=== PATIENT | male | born 1980 | race Caucasian/White ===

== ENCOUNTER 2019-06-13 10:36 | Inpatient (IN) | payer MEDICAID ==
[~2019-06-13] VITALS: Ht 180.3 cm; Wt 77.7 kg
[2019-06-13] MEDS ORDERED: DOCUSATE 100 MG CAPSULE PO PRN (11:00)
[2019-06-13] MEDS ORDERED: ONDANSETRON ODT 4 MG PO PRN (11:00)
[2019-06-13] MEDS ORDERED: PLEASE ENTER HEIGHT AND WEIGHT MC SCH (11:00)
[2019-06-13] MEDS ORDERED: BISACODYL 10 MG SUPP PR PRN (11:00)
[2019-06-13] MEDS ORDERED: POLYETHYLENE GLYCOL 17 GM PACKET PO PRN (11:00)
[2019-06-13] MEDS ORDERED: MAALOX/HYOSCYAMINE/LIDOCAINE 45 ML BTL PO PRN (11:30)
[2019-06-13 11:31] VITALS: BP 113/76
[2019-06-13] MEDS: PANTOPRAZOLE 20MG TABLET PO SCH (11:48)
[2019-06-13] MEDS ORDERED: ONDA4TAB7 PO (13:31)
[2019-06-13] MEDS ORDERED: HALO100A3 IM (13:31)
[2019-06-13] MEDS ORDERED: LISI-167 PO (13:31)
[2019-06-13] MEDS ORDERED: ALBU2.5V11 NEB (13:31)
[2019-06-13] MEDS ORDERED: TIOT18CA INH (13:31)
[2019-06-13] MEDS: NICOTINE 14MG/24 HR PATCH.TD24 TD SCH (15:12)
[2019-06-13] MEDS: BENZTROPINE 1 MG TABLET PO SCH ×2 (17:17→20:54)
[2019-06-13] MEDS: RISPERIDONE 1 MG TABLET PO SCH ×2 (17:17→20:54)
[2019-06-13] MEDS ORDERED: FLU VACC QS2019-20 36MOS UP/PF 0.5 ML IM-VACC ONE (18:00)
[2019-06-13 19:42] VITALS: BP 100/68
[2019-06-13] MEDS: ATORVASTATIN 20 MG TABLET PO SCH (20:54)
[2019-06-13] MEDS: LORazepam 0.5MG TABLET PO PRN (20:55)
[2019-06-13] MEDS: ALBUTEROL SULFATE 2.5 MG/3 ML NPPB SCH (21:00)
[2019-06-14] MEDS: PANTOPRAZOLE 20MG TABLET PO SCH (05:48)
[2019-06-14 06:06] LABS: BASOPHILS # (AUTO) 0.09 x10^3/uL (0-0.1); BASOPHILS % (AUTO) 1 % (0-1); EOSINOPHILS # (AUTO) 0.64 x10^3/uL (0-0.4); EOSINOPHILS % (AUTO) 10 % (1-7); LYMPHOCYTES % (AUTO) 38 % (22-44); MD NO; MEAN CORPUSCULAR HEMOGLOBIN 29.2 pg (27.5-34.5); MEAN CORPUSCULAR HGB CONC 33.1 g/dL (33.2-36.2); MEAN CORPUSCULAR VOLUME 88.3 fL (81-97); MEAN PLATELET VOLUME 9.2 fL (7.4-10.4); MONOCYTES # (AUTO) 0.62 x10^3/uL (0.2-0.8); MONOCYTES % (AUTO) 9 % (2-9); NEUTROPHILS # (AUTO) 2.78 x10^3/uL (1.8-6.8); NEUTROPHILS % (AUTO) 42 % (42-75); PLATELET COUNT 248 x10^3/uL (130-400); RED BLOOD COUNT 5.25 x10^6/uL (4.38-5.82); RED CELL DISTRIBUTION WIDTH 14.2 % (9.4-14.8)
[2019-06-14 06:25] LABS: FREE T4 (FREE THYROXINE) 0.98 ng/dL (0.76-1.46)
[2019-06-14 07:35] VITALS: BP 111/70
[2019-06-14 07:35] LABS: CHOL/HDL RATIO 3.1; LDL/HDL RATIO 1.5 (0.5-3.0)
[2019-06-14] MEDS: BENZTROPINE 1 MG TABLET PO SCH ×2 (09:16→20:01)
[2019-06-14] MEDS: LISINOPRIL 10 MG TABLET PO SCH (09:17)
[2019-06-14] MEDS: RISPERIDONE 1 MG TABLET PO SCH ×2 (09:17→20:01)
[2019-06-14] MEDS: ALBUTEROL SULFATE 2.5 MG/3 ML NPPB SCH ×2 (09:55→21:00)
[2019-06-14] MEDS: NICOTINE 14MG/24 HR PATCH.TD24 TD SCH (16:37)
[2019-06-14 19:06] VITALS: BP 104/71
[2019-06-14] MEDS: ATORVASTATIN 20 MG TABLET PO SCH (20:01)
[2019-06-14] MEDS: LORazepam 0.5MG TABLET PO PRN ×2 (20:01→23:19)
[2019-06-15 00:30] LABS: MICROSCOPIC NOT IND
[2019-06-15 00:38] LABS: CULTURE INDICATED? NO
[2019-06-15] MEDS: PANTOPRAZOLE 20MG TABLET PO SCH (06:19)
[2019-06-15 07:43] VITALS: BP 126/84
[2019-06-15] MEDS: ALBUTEROL SULFATE 2.5 MG/3 ML NPPB SCH ×2 (09:00→19:43)
[2019-06-15] MEDS: LISINOPRIL 10 MG TABLET PO SCH (10:08)
[2019-06-15] MEDS: BENZTROPINE 1 MG TABLET PO SCH ×2 (10:08→20:16)
[2019-06-15] MEDS: RISPERIDONE 1 MG TABLET PO SCH ×2 (10:08→20:17)
[2019-06-15] MEDS: NICOTINE 14MG/24 HR PATCH.TD24 TD SCH (15:40)
[2019-06-15 19:12] LABS: OCCULT BLOOD NEGATIVE (NEGATIVE)
[2019-06-15 19:15] VITALS: BP 110/75
[2019-06-15] MEDS: ATORVASTATIN 20 MG TABLET PO SCH (20:16)
[2019-06-15] MEDS: LORazepam 0.5MG TABLET PO PRN (20:17)
[2019-06-15] MEDS: ACETAMINOPHEN 325 MG TABLET PO PRN (20:17)
[2019-06-16] MEDS: PANTOPRAZOLE 20MG TABLET PO SCH (05:09)
[2019-06-16 07:39] VITALS: BP 100/64
[2019-06-16] MEDS: RISPERIDONE 1 MG TABLET PO SCH ×2 (08:34→20:41)
[2019-06-16] MEDS: LORazepam 0.5MG TABLET PO PRN ×2 (08:34→20:41)
[2019-06-16] MEDS: BENZTROPINE 1 MG TABLET PO SCH ×2 (08:34→20:41)
[2019-06-16] MEDS: LISINOPRIL 10 MG TABLET PO SCH (08:35)
[2019-06-16] MEDS: ACETAMINOPHEN 325 MG TABLET PO PRN ×2 (08:35→20:42)
[2019-06-16] MEDS: ALBUTEROL SULFATE 2.5 MG/3 ML NPPB SCH ×2 (09:00→19:30)
[2019-06-16] MEDS: NICOTINE 14MG/24 HR PATCH.TD24 TD SCH (15:40)
[2019-06-16] MEDS ORDERED: RISP1TAB45 PO (15:52)
[2019-06-16] MEDS ORDERED: LISI-167 PO (15:52)
[2019-06-16] MEDS ORDERED: ATOR20TA37 PO (15:52)
[2019-06-16] MEDS ORDERED: PANT20TA3 PO (15:52)
[2019-06-16] MEDS ORDERED: BENZ1TAB61 PO (15:52)
[2019-06-16] MEDS ORDERED: NICO-486 TD (15:52)
[2019-06-16 19:00] VITALS: BP 158/90
[2019-06-16] MEDS: ATORVASTATIN 20 MG TABLET PO SCH (20:41)
[2019-06-17] MEDS: LORazepam 0.5MG TABLET PO PRN (01:33)
[2019-06-17] MEDS: PANTOPRAZOLE 20MG TABLET PO SCH (05:50)
[2019-06-17 07:33] VITALS: BP 142/95
[2019-06-17] MEDS: BENZTROPINE 1 MG TABLET PO SCH (08:48)
[2019-06-17] MEDS: LISINOPRIL 10 MG TABLET PO SCH (08:48)
[2019-06-17] MEDS: RISPERIDONE 1 MG TABLET PO SCH (08:48)
[2019-06-17] MEDS: ALBUTEROL SULFATE 2.5 MG/3 ML NPPB SCH (09:00)
== END 2019-06-17 11:08 | disposition home or self-care (01) | DRG 750 ==
LOC: 3E 10:51
PROVIDERS: ADMIT Psychiatry & Neurology Psychosomatic Medicine; ATTEND Psychiatry & Neurology Psychosomatic Medicine
DX: F25.1 Schizoaffective disorder, depressive type (principal); R45.851 Suicidal ideations; F17.210 Nicotine dependence, cigarettes, uncomplicated; E78.5 Hyperlipidemia, unspecified; B19.20 Unspecified viral hepatitis C without hepatic coma; G43.909 Migraine, unspecified, not intractable, without status migrainosus; I10 Essential (primary) hypertension; J45.909 Unspecified asthma, uncomplicated; K21.9 Gastro-esophageal reflux disease without esophagitis; Z79.899 Other long term (current) drug therapy; Z80.9 Family history of malignant neoplasm, unspecified; Z23 Encounter for immunization
CPT/HCPCS: 36415; 71045; 80061; 81003; 82272; 84439; 84443; 85025; 90686; 93005; 94640; J7613; Q0162

== ENCOUNTER 2019-07-09 10:19 | Emergency (ER) | payer MEDICAID ==
[~2019-07-09] VITALS: Ht 180.3 cm; Wt 78.4 kg
[~2019-07-09 10:19] MED LIST: ALBU2.5V11 NEB; ATOR20TA37 PO; BENZ1TAB61 PO; HALO100A3 IM; LISI-167 PO; NICO-486 TD; ONDA4TAB7 PO; PANT20TA3 PO; RISP1TAB45 PO; TIOT18CA INH
[2019-07-09] MEDS ORDERED: FAMOTIDINE 20 MG TABLET PO ONE (10:30)
[2019-07-09] MEDS ORDERED: MAALOX/HYOSCYAMINE/LIDOCAINE 45 ML BTL PO ONE (10:30)
[2019-07-09 10:59] LABS: MICROSCOPIC NOT IND
[2019-07-09] MEDS ORDERED: PLEASE ENTER ALLERGIES MC SCH (11:00)
[2019-07-09] MEDS ORDERED: PLEASE ENTER HEIGHT AND WEIGHT MC SCH (11:00)
[2019-07-09 11:01] LABS: CULTURE INDICATED? NO
[2019-07-09] MEDS ORDERED: MAALOX/HYOSCYAMINE/LIDOCAINE 45 ML BTL ONE (11:13)
[2019-07-09] MEDS ORDERED: FAMOTIDINE 20 MG TABLET ONE (11:13)
[2019-07-09 11:16] LABS: BASOPHILS # (AUTO) 0.05 x10^3/uL (0-0.1); BASOPHILS % (AUTO) 1 % (0-1); EOSINOPHILS # (AUTO) 0.64 x10^3/uL (0-0.4); EOSINOPHILS % (AUTO) 9 % (1-7); LYMPHOCYTES # (AUTO) 1.65 x10^3/uL (1-3.4); LYMPHOCYTES % (AUTO) 22 % (22-44); MD NO; MEAN CORPUSCULAR VOLUME 87.8 fL (81-97); MEAN PLATELET VOLUME 8.3 fL (7.4-10.4); MONOCYTES # (AUTO) 0.53 x10^3/uL (0.2-0.8); MONOCYTES % (AUTO) 7 % (2-9); NEUTROPHILS # (AUTO) 4.52 x10^3/uL (1.8-6.8); NEUTROPHILS % (AUTO) 61 % (42-75); PLATELET COUNT 297 x10^3/uL (130-400); RED BLOOD COUNT 5.19 x10^6/uL (4.38-5.82); RED CELL DISTRIBUTION WIDTH 14.9 % (9.4-14.8)
[2019-07-09 11:26] LABS: ALANINE AMINOTRANSFERASE 17 U/L (12-78); ALBUMIN 3.4 g/dL (3.4-5.0); ANION GAP 4 mmol/L (5-15); CHLORIDE 104 mmol/L (98-107); CREATININE 0.82 mg/dL (0.7-1.3)
[2019-07-09 11:29] LABS: ALKALINE PHOSPHATASE 101 U/L (45-117); BILIRUBIN,TOTAL 0.3 mg/dL (0.2-1.0); TOTAL PROTEIN 7.4 g/dL (6.4-8.2)
--- NOTE | 2019-07-09 11:36 | NUR ---
pt laying in bed, respirations even and unlabored, no signs of distress. medicated to mar, states relief from stomach pain. pt is a poor historian and making statements about spirits talking to him.
[2019-07-09 12:10] VITALS: BP 125/64
== END 2019-07-09 12:12 | disposition home or self-care (01) ==
LOC: ED 10:58
DX: R11.2 Nausea with vomiting, unspecified (principal); R42 Dizziness and giddiness; R05 Cough; K59.00 Constipation, unspecified; R10.9 Unspecified abdominal pain
CPT/HCPCS: 36415; 74021; 80053; 81003; 83690; 85025; 99284

== ENCOUNTER 2019-09-14 23:17 | Emergency (ER) | payer MEDICAID ==
[~2019-09-14] VITALS: Ht 180.3 cm; Wt 77.3 kg
[2019-09-14 23:19] VITALS: BP 105/71
--- NOTE | 2019-09-15 00:29 | NUR ---
pt nil x1
--- NOTE | 2019-09-15 00:53 | NUR ---
pt nilx2
--- NOTE | 2019-09-15 01:02 | NUR ---
pt nilx3
== END 2019-09-15 04:41 | disposition left against medical advice (07) ==
LOC: ED 09-15 04:38
DX: M54.5 Low back pain (principal); Z53.21 Procedure and treatment not carried out due to patient leaving prior to being seen by health care provider

== ENCOUNTER 2019-09-24 01:56 | Emergency (ER) | payer MEDICAID ==
[~2019-09-24] VITALS: Ht 177.8 cm; Wt 70.0 kg
[2019-09-24 01:58] VITALS: BP 126/80
--- NOTE | 2019-09-24 02:10 | NUR ---
THIS PT WALKED IN WITH [facility] AFTER THE [employer] CALLED BECAUSE THE PT WAS AT THE BUS STATION "NOT ACTING RIGHT." CURRENTLY THE PT STATES HE KNOWS HE'S IN THE HOSPITAL, BUT IS UNSURE WHY HE'S HERE. CHEIF COMPLAINT OF FEELING LIKE HE HAS CONTACTS IN HIS EYES. NO CONTACTS NOTED. DENIES SI/HI. HX OF SCHITZOPHRENIA, STATES HE'S NOT SURE IF HE'S HAVING AUDITORY HALLUCINATIONS. STATES HE SAW A DRAGON ON THE AMBULANCE RIDE HERE. NO SIGNS OF DISTRESS.
--- NOTE | 2019-09-24 02:57 | NUR ---
PT. ATTEMPTED TO PROVIDE URINE SAMPLE BUT WAS UNSUCCESSFUL. PT. BACK TO [facility]; RESTING WITH BLANKET OVER HEAD. RESPIRATIONS VISIBLE. DENIES NEEDS.
[2019-09-24 03:03] LABS: ALANINE AMINOTRANSFERASE 16 U/L (12-78); ALBUMIN 3.3 g/dL (3.4-5.0); ANION GAP 4 mmol/L (5-15); CALCIUM 8.3 mg/dL (8.5-10.1); CHLORIDE 106 mmol/L (98-107); CREATININE 0.78 mg/dL (0.7-1.3)
[2019-09-24 03:06] LABS: ALKALINE PHOSPHATASE 97 U/L (45-117); BILIRUBIN,TOTAL 0.5 mg/dL (0.2-1.0); TOTAL PROTEIN 6.8 g/dL (6.4-8.2)
[2019-09-24 03:15] LABS: BASOPHILS # (AUTO) 0.04 x10^3/uL (0-0.1); BASOPHILS % (AUTO) 1 % (0-1); EOSINOPHILS # (AUTO) 0.26 x10^3/uL (0-0.4); EOSINOPHILS % (AUTO) 5 % (1-7); LYMPHOCYTES # (AUTO) 1.41 x10^3/uL (1-3.4); LYMPHOCYTES % (AUTO) 28 % (22-44); MD SCAN; MEAN CORPUSCULAR HGB CONC 32.5 g/dL (33.2-36.2); MEAN CORPUSCULAR VOLUME 89.3 fL (81-97); MEAN PLATELET VOLUME 9.3 fL (7.4-10.4); MONOCYTES # (AUTO) 0.51 x10^3/uL (0.2-0.8); MONOCYTES % (AUTO) 10 % (2-9); NEUTROPHILS # (AUTO) 2.78 x10^3/uL (1.8-6.8); NEUTROPHILS % (AUTO) 56 % (42-75); PLATELET COUNT 212 x10^3/uL (130-400); RED BLOOD COUNT 4.75 x10^6/uL (4.38-5.82); RED CELL DISTRIBUTION WIDTH 14.9 % (9.4-14.8)
--- NOTE | 2019-09-24 03:25 | NUR ---
SUMMARY NOTE: THIS PT HAS PREVIOUS PSYCH ADMISSIONS. PT STATES HE'S NOT SURE WHEN HE LAST TOOK HIS SCHITZO-EFFCTIVE MEDICATION, PT UNSURE OF WHAT MEDICATION HE'S BEEN PRESCRIBED. PT DENIES DRUG USE, AND IS UNSURE OF WHEN HE LAST DRANK ALCOHOL. PT IS HAS REMAINED CALM AND COOPERATIVE. NO SITTER NECESSARY AT THIS TIME, BELONGINGS REMAIN IN ROOM. ROOM IS SECURE WITH GARAGE DOORS DOWN.
== END 2019-09-24 04:03 | disposition home or self-care (01) ==
LOC: ED 03:54
DX: F25.9 Schizoaffective disorder, unspecified (principal); Z91.14 Patient's other noncompliance with medication regimen
CPT/HCPCS: 36415; 80053; 80307; 85025; 99283; 99284

== ENCOUNTER 2019-11-03 23:36 | Emergency (ER) | payer MEDICAID ==
[~2019-11-03] VITALS: Ht 180.3 cm; Wt 79.5 kg
[2019-11-03 23:40] VITALS: BP 144/89
--- NOTE | 2019-11-03 23:46 | NUR ---
PT AMBULATORY TO ROOM, STEADY GAIT.
--- NOTE | 2019-11-03 23:57 | NUR ---
ERP TO BEDSIDE.
== END 2019-11-04 00:37 | disposition home or self-care (01) ==
LOC: ED 23:45
DX: F98.9 Unspecified behavioral and emotional disorders with onset usually occurring in childhood and adolescence (principal); Z72.9 Problem related to lifestyle, unspecified; F20.9 Schizophrenia, unspecified
CPT/HCPCS: 99283

== ENCOUNTER 2019-11-04 09:21 | Emergency (ER) | payer MEDICAID ==
[~2019-11-04] VITALS: Ht 180.3 cm; Wt 79.9 kg
[2019-11-04 09:25] VITALS: BP 133/86
[2019-11-04] MEDS ORDERED: ONDANSETRON 2MG/ML, 2ML ONE (09:47)
--- NOTE | 2019-11-04 09:50 | NUR ---
ekg at the bedside
[2019-11-04 09:54] LABS: BASOPHILS # (AUTO) 0.05 x10^3/uL (0-0.1); BASOPHILS % (AUTO) 1 % (0-1); EOSINOPHILS # (AUTO) 0.42 x10^3/uL (0-0.4); EOSINOPHILS % (AUTO) 5 % (1-7); LYMPHOCYTES # (AUTO) 1.87 x10^3/uL (1-3.4); LYMPHOCYTES % (AUTO) 20 % (22-44); MD NO; MEAN CORPUSCULAR HEMOGLOBIN 28.6 pg (27.5-34.5); MEAN CORPUSCULAR HGB CONC 32.3 g/dL (33.2-36.2); MEAN CORPUSCULAR VOLUME 88.7 fL (81-97); MEAN PLATELET VOLUME 8.2 fL (7.4-10.4); MONOCYTES # (AUTO) 0.87 x10^3/uL (0.2-0.8); MONOCYTES % (AUTO) 10 % (2-9); NEUTROPHILS # (AUTO) 6.01 x10^3/uL (1.8-6.8); NEUTROPHILS % (AUTO) 65 % (42-75); PLATELET COUNT 273 x10^3/uL (130-400); RED BLOOD COUNT 4.91 x10^6/uL (4.38-5.82); RED CELL DISTRIBUTION WIDTH 15.2 % (9.4-14.8)
[2019-11-04] MEDS ORDERED: SODIUM CHLORIDE FLUSH 10ML SYR IVF ONE (10:00)
[2019-11-04] MEDS ORDERED: ONDANSETRON 2MG/ML, 2ML IVPush ONE (10:00)
[2019-11-04] MEDS ORDERED: PLEASE ENTER ALLERGIES MC SCH (10:00)
[2019-11-04] MEDS ORDERED: SODIUM CHLORIDE 0.9% 1,000ML IVBOLUS ONE (10:00)
[2019-11-04 10:07] LABS: ALANINE AMINOTRANSFERASE 22 U/L (12-78); ALBUMIN 3.9 g/dL (3.4-5.0); ANION GAP 6 mmol/L (5-15); CALCIUM 8.9 mg/dL (8.5-10.1); CHLORIDE 107 mmol/L (98-107); CREATININE 0.74 mg/dL (0.7-1.3)
[2019-11-04 10:09] LABS: ALKALINE PHOSPHATASE 117 U/L (45-117); BILIRUBIN,TOTAL 0.6 mg/dL (0.2-1.0); TOTAL PROTEIN 7.5 g/dL (6.4-8.2)
== END 2019-11-04 11:45 | disposition home or self-care (01) ==
LOC: ED 10:50
DX: R11.2 Nausea with vomiting, unspecified (principal); R07.89 Other chest pain; R10.9 Unspecified abdominal pain
CPT/HCPCS: 36415; 71045; 80053; 85025; 93005; 96361; 96374; 99285; J2405; J7030

== ENCOUNTER 2019-11-05 18:59 | Emergency (ER) | payer MEDICAID ==
[~2019-11-05] VITALS: Ht 180.3 cm; Wt 80.8 kg
--- NOTE | 2019-11-05 21:00 | NUR ---
Pt to room at this time from lobby
--- NOTE | 2019-11-05 21:02 | NUR ---
Pt reports his chest hurts and his feet hurt.
--- NOTE | 2019-11-05 21:25 | NUR ---
Pt reports all of his body hurts and does not feel well. Pt reports he has been laying in the sun. Pt reports he has been off of meth for one month so he does not know why he doesnt feel well. Pt reports that his feet and lower right chest hurt as well. Pt denies trauma. Pts EKG normal and pt placed on montiors and call light in reach. Awaiting further orders. vss
--- NOTE | 2019-11-05 21:28 | NUR ---
Pt ekg completed.
[2019-11-05] MEDS ORDERED: IBUPROFEN 200 MG TABLET PO ONE (21:30)
[2019-11-05] MEDS ORDERED: IBUPROFEN 600 MG TABLET ONE (21:39)
--- NOTE | 2019-11-05 21:41 | NUR ---
Pt medicated per emar, chart up for recheck.
[2019-11-05 21:48] VITALS: BP 118/75
--- NOTE | 2019-11-05 23:04 | NUR ---
Patient/Caregiver given discharge instructions and they have confirmed that they understand the instructions. Patient ambulatory with steady gait.
== END 2019-11-05 23:05 | disposition home or self-care (01) ==
LOC: ED 23:00
DX: S20.219A Contusion of unspecified front wall of thorax, initial encounter (principal); M94.0 Chondrocostal junction syndrome [Tietze]; I10 Essential (primary) hypertension; F20.9 Schizophrenia, unspecified; X58.XXXA Exposure to other specified factors, initial encounter; Y92.89 Other specified places as the place of occurrence of the external cause; Y93.89 Activity, other specified; Y99.8 Other external cause status
CPT/HCPCS: 93005; 99283

== ENCOUNTER 2020-01-06 14:19 | Inpatient (IN) | payer MEDICAID ==
[~2020-01-06] VITALS: Ht 165.1 cm; Wt 94.2 kg
[~2020-01-06 14:19] MED LIST changes: -PANT20TA3 PO; +PANT20TA4 PO
[2020-01-06] MEDS ORDERED: DOCUSATE 100 MG CAPSULE PO PRN (15:00)
[2020-01-06] MEDS ORDERED: POLYETHYLENE GLYCOL 17 GM PACKET PO PRN (15:00)
[2020-01-06] MEDS ORDERED: BISACODYL 10 MG SUPP PR PRN (15:00)
[2020-01-06 16:09] VITALS: BP 172/98
[2020-01-06 20:17] VITALS: BP 106/73
[2020-01-07] MEDS: ACETAMINOPHEN 325 MG TABLET PO PRN ×5 (02:30→23:00)
[2020-01-07] MEDS: ONDANSETRON ODT 4 MG PO PRN ×3 (04:27→23:28)
[2020-01-07 06:10] LABS: CHOL/HDL RATIO 2.8; FREE T4 (FREE THYROXINE) 0.91 ng/dL (0.76-1.46); LDL/HDL RATIO 1.4 (0.5-3.0)
[2020-01-07 07:31] VITALS: BP 145/86
[2020-01-07] MEDS ORDERED: AMLODIPINE 5 MG TABLET PO SCH (09:00)
[2020-01-07] MEDS: RISPERIDONE 1 MG TABLET PO SCH ×2 (09:31→20:13)
[2020-01-07 20:08] VITALS: BP 126/76
[2020-01-07 23:06] LABS: MICROSCOPIC NOT IND
[2020-01-08] MEDS: ONDANSETRON ODT 4 MG PO PRN (07:26)
[2020-01-08] MEDS: RISPERIDONE 1 MG TABLET PO SCH ×2 (07:26→20:30)
[2020-01-08 07:29] VITALS: BP 150/98
[2020-01-08] MEDS: ACETAMINOPHEN 325 MG TABLET PO PRN ×2 (09:17→14:33)
[2020-01-08] MEDS: PANTOPRAZOLE 40MG TABLET PO SCH (13:38)
[2020-01-08] MEDS ORDERED: NICOTINE 14MG/24 HR PATCH.TD24 TD SCH (15:30)
[2020-01-08] MEDS ORDERED: LORazepam 1MG TABLET PO ONE (16:00)
[2020-01-08 19:12] VITALS: BP 145/97
[2020-01-09] MEDS ORDERED: FLU VACC QS2020-21(6MOS UP)/PF 60MCG/0.5 ML SYR IM ONE (05:00)
[2020-01-09 07:17] VITALS: BP 113/81
[2020-01-09] MEDS: PANTOPRAZOLE 40MG TABLET PO SCH (08:24)
[2020-01-09] MEDS: RISPERIDONE 1 MG TABLET PO SCH (08:27)
[2020-01-09] MEDS ORDERED: RISP1TAB45 PO (11:53)
[2020-01-09] MEDS ORDERED: NICO-486 TD (11:53)
[2020-01-09] MEDS ORDERED: PANT40TA6 PO (11:53)
== END 2020-01-09 12:29 | disposition home or self-care (01) | DRG 750 ==
LOC: 3E 15:46
PROVIDERS: ADMIT Psychiatry & Neurology Psychosomatic Medicine; ATTEND Psychiatry & Neurology Psychosomatic Medicine
DX: F25.0 Schizoaffective disorder, bipolar type (principal); F17.200 Nicotine dependence, unspecified, uncomplicated; G43.909 Migraine, unspecified, not intractable, without status migrainosus; J45.909 Unspecified asthma, uncomplicated; K21.9 Gastro-esophageal reflux disease without esophagitis; F12.90 Cannabis use, unspecified, uncomplicated; B19.20 Unspecified viral hepatitis C without hepatic coma; Z23 Encounter for immunization
CPT/HCPCS: 36415; 80061; 81003; 84439; 84443; 90686; 93005; Q0162

== ENCOUNTER 2020-06-17 01:07 | Emergency (ER) | payer MEDICAID ==
[~2020-06-17] VITALS: Ht 180.3 cm; Wt 101.2 kg
[~2020-06-17 01:07] MED LIST changes: +PANT40TA6 PO
[2020-06-17 01:08] VITALS: BP 132/89
--- NOTE | 2020-06-17 01:31 | NUR ---
CC OF [place], [place], [place], STATES "my head feels like something fell thru it" AND HAS FELT LIKE THIS FOR 3 YEARS. PT ALSO STATES "I HAVE BEEN SLEEPING FOR A MONTH AND HAVE NO PLACE TO LIVE, I HAVENT BEEN DOING DRUGS, I THINK I HAVE A CONCUSSION." UNSURE IF ANY TRAUMA.
[2020-06-17 01:58] LABS: BASOPHILS % (AUTO) 1 % (0-1); EOSINOPHILS % (AUTO) 5 % (1-7); LYMPHOCYTES % (AUTO) 24 % (22-44); MEAN CORPUSCULAR HEMOGLOBIN 29.7 pg (27.5-34.5); MEAN CORPUSCULAR HGB CONC 33.6 g/dL (33.2-36.2); MEAN PLATELET VOLUME 8.4 fL (7.4-10.4); MONOCYTES % (AUTO) 13 % (2-9); NEUTROPHILS % (AUTO) 57 % (42-75); PLATELET COUNT 235 x10^3/uL (130-400); RED BLOOD COUNT 4.93 x10^6/uL (4.38-5.82); RED CELL DISTRIBUTION WIDTH 14.1 % (9.4-14.8)
[2020-06-17 01:59] LABS: MD NO
[2020-06-17 02:07] LABS: ALANINE AMINOTRANSFERASE 19 U/L (12-78); ALBUMIN 3.7 g/dL (3.4-5.0); ANION GAP 4 mmol/L (5-15); CALCIUM 8.7 mg/dL (8.5-10.1); CHLORIDE 109 mmol/L (98-107); CREATININE 0.98 mg/dL (0.7-1.3)
[2020-06-17 02:09] LABS: ALKALINE PHOSPHATASE 123 U/L (45-117); BILIRUBIN,TOTAL 0.3 mg/dL (0.2-1.0); TOTAL PROTEIN 7.1 g/dL (6.4-8.2)
== END 2020-06-17 03:23 | disposition home or self-care (01) ==
LOC: ED 01:37
DX: R51.9 Headache, unspecified (principal); R53.1 Weakness; R53.83 Other fatigue; F25.8 Other schizoaffective disorders; I10 Essential (primary) hypertension; F17.210 Nicotine dependence, cigarettes, uncomplicated
CPT/HCPCS: 36415; 80053; 80320; 85025; 99406; G0480